=== PATIENT | male | born 1965 | race Native Hawaiian/Other Pacific Islander ===

== ENCOUNTER → 2022-02-06 | Outpatient (CLI) | payer BC ==
--- NOTE | 2022-02-06 12:41 | CT ---
EXAMINATION TYPE: CT brain wo con, CT orbits wo con CT DLP: 1029.9 (accession [id number]), 404 (accession [id number]) mGycm, Automated exposure control for d ose reduction was used. DATE OF EXAM: 02/06/2022 12:29 PM COMPARISON: None. CLINICAL INDICATION:Male, 56 years old with history of S09.93XA UNSPECIFIED INJURY OF FACE, slip and fall on ice. Lacerations to forehead and nose. no contrast. no previous. TECHNIQUE: Brain: Axial CT images of the brain were obtained with coronal and sagittal reformats created and rev iewed. Orbits additional axial imaging through the orbits with sagittal and coronal reformats. Contrast used: None. Oral contrast used: None. FINDINGS: Brain: Extra-axial spaces: No abnormal extra-axial fluid collections. Ventricular system: Within normal limits Cerebral parenchyma: No acute intraparenchymal hemorrhage or mass effect. The mota-white junction is well differentiated. Cerebellum: Unremarkable. Mass effect: No evidence of midline shift. Intracranial vasculature: unremarkable Soft tissues: Mild edema of the foot. Calvarium/osseous structures: No depressed skull fracture. Left nasal bone deviation with mild displa cement the left nasal bone up to 1 to 2 mm. Paranasal sinuses and mastoid air cells: Mild scattered paranasal sinus disease. Visualized orbits: Orbital contents are intact. Orbits: Visualized orbits appear intact. The globes are intact. The intraconal and extra conal fat is intact. Mild right forehead edema. IMPRESSION: 1. No acute intracranial process. 2. Deviated left nasal bone with left nasal bone fracture. 3. The orbits and globes are intact. 4. Soft tissue edema of the forehead.
== END | disposition home or self-care (01) ==
LOC: RADCTMAIN 11:55
PROVIDERS: ATTEND Family Medicine
DX: S02.2XXA Fracture of nasal bones, initial encounter for closed fracture (principal); S09.93XA Unspecified injury of face, initial encounter; R60.0 Localized edema
CPT/HCPCS: 70450; 70480

== ENCOUNTER → 2023-05-05 | Outpatient (CLI) | payer BC ==
--- NOTE | 2023-05-05 19:35 | US ---
EXAMINATION TYPE: US abdomen complete DATE OF EXAM: 05/05/2023 COMPARISON: NONE CLINICAL INDICATION: Male, 57 years old with history of R74.01 ELEVATION OF LEVELS OF LIVER TRANSAMIN ASE L; Elevated levels of liver transaminase. TECHNIQUE: Multiple sonographic images of the abdomen are obtained. FINDINGS: EXAM MEASUREMENTS: Liver Length: 15.8 cm Gallbladder Wall: 0.24 cm CBD: Obscured Spleen: 10.7 cm Right Kidney: 12.6 x 5.8 x 5.8 cm Left Kidney: 13.1 x 6.0 x 5.3 cm INDUSTRIAL ORDER CLERK NOTES: Limited due to gas Pancreas: Not well seen. Liver: Appears very coarse/heterogeneous. *Indistinct, hypoechoic area seen adjacent to the gallbladder: 1.9 x 1.3 x 0.9 cm. Gallbladder: Appears anechoic. Evidence for sonographic Bryant's sign: No CBD: Obscured Spleen: Appears wnl Right Kidney: Slightly enlarged. No hydronephrosis or masses seen Left Kidney: Enlarged. Contour appears slightly irregular. No hydronephrosis or masses seen Upper IVC: Appears wnl Abd Aorta: Proximal segment appears ectatic measuring 2.8 cm. Iliac arteries were obscured. IMPRESSION: Mild fatty infiltration of the liver.
== END | disposition home or self-care (01) ==
LOC: RADUSWWP 06:53
PROVIDERS: ATTEND Family Medicine
DX: R74.01 Elevation of levels of liver transaminase levels (principal); K76.0 Fatty (change of) liver, not elsewhere classified
CPT/HCPCS: 76700

== ENCOUNTER → 2024-08-18 | Outpatient (CLI) | payer BC ==
--- NOTE | 2024-08-18 16:16 | MR ---
EXAMINATION TYPE: MR shoulder RT wo con DATE OF EXAM: 08/18/2024 4:02 PM COMPARISON: None. CLINICAL INDICATION: Male, 58 years old with history of M75.101 UNSP ROTATR-CUFF TEAR/RUPTR OF RIGHT SHOUL, right shoulder pain for 4 months due to several falls this past winter. IV Contrast: cc (None if empty) TECHNIQUE: Multiplanar, multisequence imaging of the right shoulder is performed without contrast. FINDINGS: There is mild osteoarthritic change of the AC joint. Glenohumeral joint is is a tiny subchondral cyst in the lateral humeral head. There is a small glenohumeral joint effusion. There is mild subdeltoid bursitis. The tendons of the rotator cuff are intact and there is no rotator cuff tear. The biceps tendon is normal in signal intensity and positioned within the bicipital groove. There is a tear of the superior cartilaginous labrum at the biceps tendon insertion consistent with a SLAP inj ury. There is avulsion and tear of the inferior glenohumeral ligament from the humerus. IMPRESSION: 1. Mild AC joint degeneration. 2. No rotator cuff tear. 3. Tear of the superior cartilaginous labrum at the insertion of the long head of the biceps. 4. Tear and avulsion of the inferior glenohumeral ligament at the humeral attachment. 5. Mild subdeltoid bursitis. [facility], , 08/18/2024 4:13 PM
== END | disposition home or self-care (01) ==
LOC: RADMRIMAIN 15:26
PROVIDERS: ATTEND Family Medicine
DX: M75.101 Unspecified rotator cuff tear or rupture of right shoulder, not specified as traumatic (principal); M19.011 Primary osteoarthritis, right shoulder; M75.111 Incomplete rotator cuff tear or rupture of right shoulder, not specified as traumatic; M75.51 Bursitis of right shoulder